=== PATIENT | male | born 1950 | race Two or more races ===

== ENCOUNTER 2017-04-27 17:26 | Inpatient (IN) | payer MEDICARE, MEDICAID ==
[~2017-04-27] VITALS: Ht 172.7 cm; Wt 76.2 kg
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
--- NOTE | 2017-04-27 18:00 | NUR ---
SURVEY TECHNOLOGIST AT BEDSIDE FOR BLOOD DRAW.
[2017-04-27 18:09] LABS: BASOPHILS % (AUTO) 0.7 % (0.0-2.0); EOSINOPHILS # (AUTO) 0.1 /CMM (0.0-0.7); EOSINOPHILS % (AUTO) 2.4 % (0.0-6.0); HEMATOCRIT 35 % (39-51); HEMOGLOBIN 11.6 g/dL (13.5-17.5); LYMPHOCYTES # (AUTO) 0.8 /CMM (0.8-4.8); LYMPHOCYTES % (AUTO) 15.5 % (20.0-44.0); MEAN CORPUSCULAR HEMOGLOBIN 26 PG (26.0-33.0); MEAN CORPUSCULAR HGB CONC 33 g/dl (31.0-36.0); MEAN CORPUSCULAR VOLUME 77 fL (80-96); MONOCYTES # (AUTO) 0.5 /CMM (0.1-1.30); MONOCYTES % (AUTO) 8.9 % (2.0-12.0); NEUTROPHILS # (AUTO) 3.7 /CMM (1.8-8.9); NEUTROPHILS % (AUTO) 72.5 % (43.0-81.0); PLATELET COUNT (AUTO) 177 /CMM (150-450); RDW COEFFICIENT OF VARIATION 15.8 (11.5-15.0); RED BLOOD CELL COUNT(AUTO) 4.51 MIL/uL (4.5-6.0); WHITE BLOOD COUNT (AUTO) 5.1 K/uL (4.3-11.0)
[2017-04-27 18:17] LABS: CALCIUM, SERUM 8.1 mg/dL (8.5-10.1); CARBON DIOXIDE 21 mmol/L (21-32); CHLORIDE 109 mmol/L (98-107); CREATININE 1.2 mg/dL (0.6-1.3); GLUCOSE 101 mg/dL (74-106); POTASSIUM 3.8 mmol/L (3.5-5.1); SODIUM SERUM 138 mmol/L (136-145); UREA NITROGEN, BLOOD 12 mg/dL (7-18)
[2017-04-27 18:23] LABS: ACETAMINOPHEN 2 ug/ml (10-30); ALANINE AMINOTRANSFERASE 17 U/L (12-78); ALBUMIN 3.5 g/dL (3.4-5.0); ALCOHOL, BLOOD < 3 mg/dL (0-0); ALKALINE PHOSPHATASE 121 U/L (46-116); ASPARTATE AMINOTRANSFERASE 18 U/L (15-37); BILIRUBIN,DIRECT 0.1 mg/dL (0.0-0.2); BILIRUBIN,TOTAL 0.3 mg/dL (0.2-1.0); TOTAL PROTEIN, SERUM 6.1 g/dL (6.4-8.2)
[2017-04-27 18:24] LABS: SALICYLATE 1.2 mg/dL (2.8-20.0)
[2017-04-27 18:49] LABS: APPEARANCE,URINE Clear (CLEAR); BILIRUBIN,URINE Negative (NEGATIVE); BLOOD, URINE Negative Ery/uL (NEGATIVE); COLOR,URINE Yellow (YELLOW); KETONES,URINE Negative (NEGATIVE); LEUKOCYTE ESTERASE ,URINE Negative (NEGATIVE); NITRITE, URINE Negative (NEGATIVE); PH,URINE 5.5 (5.0-8.0); PROTEIN,URINE Trace mg/dl (NEGATIVE); UGLUCOSE Negative (NEGATIVE); UROBILINOGEN,URINE 0.2 EU/dL (0.2)
[2017-04-27 18:55] LABS: BACTERIA,URINE Rare /HPF (None Seen); RBC,URINE 0-2 /HPF (0-2); SQUAMOUS EPITHELIAL CELL,UR Few /HPF (None Seen); WBC,URINE 0-2 /HPF (0-3)
[2017-04-27] MEDS ORDERED: HYDR-3895 PO (19:17)
[2017-04-27] MEDS ORDERED: METH500T PO (19:17)
[2017-04-27] MEDS ORDERED: PRIM50TA PO ×2 (19:17)
[2017-04-27] MEDS ORDERED: CALC-108 PO (19:17)
[2017-04-27] MEDS ORDERED: OMEP20CA10 PO (19:17)
[2017-04-27] MEDS ORDERED: CLON0.5T4 PO ×2 (19:17)
[2017-04-27] MEDS ORDERED: SIMV20TA6 PO (19:17)
[2017-04-27] MEDS ORDERED: CITA10TA9 PO (19:17)
[2017-04-27] MEDS ORDERED: FLUT12AE3 IH (19:17)
[2017-04-27] MEDS ORDERED: SUCR1TAB PO (19:17)
[2017-04-27] MEDS ORDERED: CARB15DR47 EACH EAR (19:17)
[2017-04-27] MEDS ORDERED: DOCU250C75 PO (19:17)
[2017-04-27] MEDS ORDERED: ALEN70TA45 PO (19:17)
[2017-04-27] MEDS ORDERED: ALBU8.5H2 INH (19:30)
[2017-04-27] MEDS ORDERED: BUDE180A IH (19:30)
[2017-04-27] MEDS ORDERED: BUDE90AE (19:38)
--- NOTE | 2017-04-27 20:06 | NUR ---
REPORT GIVEN TO ROSA. PT AWAITING TRANSFER TO FLOOR.
[2017-04-27 20:30] VITALS: BP 105/66
[2017-04-27] MEDS ORDERED: MAGNESIUM HYDROXIDE 30 ML UDC PO PRN (21:00)
[2017-04-27] MEDS ORDERED: MAG HYDROX/AL HYDROX/SIMETH 30 ML UDC PO PRN (21:00)
[2017-04-27] MEDS ORDERED: ACETAMINOPHEN 325 MG TABLET PO PRN (21:00)
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
[2017-04-27] MEDS ORDERED: CARBAMIDE PEROXIDE OTIC 15 ML BOTTLE EACH EAR PRN (22:30)
[2017-04-27] MEDS ORDERED: DOCUSATE SODIUM 250 MG CAPSULE PO PRN (22:30)
--- NOTE | 2017-04-28 06:30 | NUR ---
RN GPS NOTES PT. , DENIES SI HI AT THIS TIME NO ACUTE DISTRESS NOTED, ATTENDED ALL NEEDS ANTICIPATED , PT .ENCOURAGED FOR SKIN / BODY ASSESSMENT ,EXPLAINED RISKS AND BENEFITS STILL REFUSED SKIN BODY ASSESSMENT, ENDORSE TO NEXT SHIFT FOR CONTINUITY OF CARE .
--- NOTE | 2017-04-28 07:16 | NUR ---
GPS RN NOTES: AT BED SITE 1:1 SITTER FOR PT, SAFETY WILL CONTINUE TO MONITOR .
[2017-04-28 08:00] VITALS: BP 105/61
[2017-04-28] MEDS ORDERED: hydrOXYzine PAMOATE 25 MG CAPSULE PO SCH (09:00)
[2017-04-28] MEDS ORDERED: clonazePAM 0.5 MG TABLET PO SCH ×2 (09:00→18:00)
[2017-04-28] MEDS: SUCRALFATE 1 G TABLET PO SCH (09:00)
[2017-04-28] MEDS ORDERED: FLUTICASONE/SALMETEROL DISKUS IH SCH (09:00)
[2017-04-28] MEDS: CALCIUM CARB 250MG /VITAMIN D 1 UDTAB PO SCH (09:32)
[2017-04-28] MEDS: PANTOPRAZOLE 40 MG TABLET.DR PO SCH (09:32)
[2017-04-28] MEDS: BUDESONIDE RESPULE INH 0.25 MG/2 ML AMPUL.NEB NEB SCH ×2 (10:01→19:06)
[2017-04-28] MEDS: FLUTICASONE/VILANTEROL 1 EACH BLST.W.DEV IH SCH (10:05)
[2017-04-28 14:45] LABS: IRON, SERUM 35 ug/dl (50-175); TOTAL IRON BINDING CAPACITY 386 ug/dl (250-450)
--- NOTE | 2017-04-28 15:19 | NUR ---
Initial discharge plan: Pt. is a resident at [address] [id number] and wants to return. SHYANN will follow up ih son, Roland [phone] and SHAD Reinoso social security benefits interviewer [phone] to discuss discharge plan. SHYANN will also follow up with MD and will help form a safe and proper discharge.
--- NOTE | 2017-04-28 15:40 | NUR ---
GPS RN: CALLED DR. YORK'S OFFICE AND LEFT A MESSAGE WITH SAND CONDITIONER MACHINE MARILEE REGARDING NEUROLOGY CONSULT ORDERED BY DR. VALLE.
[2017-04-28 16:00] VITALS: BP 101/68
[2017-04-28] MEDS: ALBUTEROL FS 2.5 MG/3 ML VIAL.NEB NEB PRN (16:45)
[2017-04-28] MEDS: CITALOPRAM HYDROBROMIDE 10 MG TABLET PO SCH (17:17)
--- NOTE | 2017-04-28 19:06 | NUR ---
1930 Q12 BUDESONIDE NOT GIVEN AT THIS TIME. RT DAY SHIFT GAVE TX AT 16:45. WILL CONT TO MONITOR PATIENT.
[2017-04-28 19:59] VITALS: BP 123/77
[2017-04-28 20:00] VITALS: BP 123/77
[2017-04-28] MEDS: SIMVASTATIN 20 MG TABLET PO SCH (21:14)
[2017-04-28] MEDS: PRIMIDONE 50 MG TABLET PO SCH (21:14)
[2017-04-29] MEDS: TEMAZEPAM 7.5 MG CAPSULE PO PRN ×2 (01:07→22:41)
[2017-04-29] MEDS: BUDESONIDE RESPULE INH 0.25 MG/2 ML AMPUL.NEB NEB SCH ×2 (07:24→19:04)
[2017-04-29 08:22] VITALS: BP 118/76
[2017-04-29] MEDS: CALCIUM CARB 250MG /VITAMIN D 1 UDTAB PO SCH (08:40)
[2017-04-29] MEDS: SUCRALFATE 1 G TABLET PO SCH (08:40)
[2017-04-29] MEDS: CITALOPRAM HYDROBROMIDE 10 MG TABLET PO SCH ×2 (08:40→17:09)
[2017-04-29] MEDS: PANTOPRAZOLE 40 MG TABLET.DR PO SCH (08:41)
[2017-04-29] MEDS: FLUTICASONE/VILANTEROL 1 EACH BLST.W.DEV IH SCH (08:42)
--- NOTE | 2017-04-29 14:32 | NUR ---
SHYANN spoke with Rosibel from admission at [address] [id number] and she stated that [place] social welfare research worker, Dominick [phone] is working on placing him somewhere else. SHYANN called Dominick but she was not available; hence, a voicemail was left to be called back. SHYANN will follow up
[2017-04-29] MEDS ORDERED: GADOVERSETAMIDE 5 MMOL/10 ML VIAL IJ ONE (14:51)
[2017-04-29] MEDS ORDERED: GADOVERSETAMIDE 2.5 MMOL/5 ML VIAL IJ ONE (14:51)
--- NOTE | 2017-04-29 15:35 | NUR ---
SHYANN received a voicemail from Daisha from [facility] [phone] stating to call back when pt is being discharge to coordinate care. SHYANN will follow up
[2017-04-29 15:54] VITALS: BP 122/68
[2017-04-29] MEDS: SIMVASTATIN 20 MG TABLET PO SCH (22:40)
[2017-04-29] MEDS: PRIMIDONE 50 MG TABLET PO SCH (22:40)
[2017-04-29] MEDS: QUETIAPINE FUMARATE 25 MG TABLET PO SCH (22:40)
[2017-04-30] MEDS: BUDESONIDE RESPULE INH 0.25 MG/2 ML AMPUL.NEB NEB SCH ×2 (07:11→20:47)
[2017-04-30] MEDS ORDERED: ALENDRONATE 70 MG TABLET PO SCH (07:30)
[2017-04-30 08:00] VITALS: BP 107/63
[2017-04-30] MEDS: SUCRALFATE 1 G TABLET PO SCH (08:36)
[2017-04-30] MEDS: QUETIAPINE FUMARATE 25 MG TABLET PO SCH ×2 (08:36→21:08)
[2017-04-30] MEDS: CALCIUM CARB 250MG /VITAMIN D 1 UDTAB PO SCH (08:36)
[2017-04-30] MEDS: PANTOPRAZOLE 40 MG TABLET.DR PO SCH (08:36)
[2017-04-30] MEDS: CITALOPRAM HYDROBROMIDE 10 MG TABLET PO SCH ×2 (08:36→16:58)
[2017-04-30] MEDS: CYANOCOBALAMIN 1,000 MCG/ML VIAL IM SCH (08:36)
[2017-04-30] MEDS: FLUTICASONE/VILANTEROL 1 EACH BLST.W.DEV IH SCH (08:43)
[2017-04-30] MEDS: METHOCARBAMOL (500MG) 500 MG TABLET PO PRN (13:38)
[2017-04-30 15:53] VITALS: BP 104/71
[2017-04-30 20:00] VITALS: BP 114/70
[2017-04-30] MEDS: PRIMIDONE 50 MG TABLET PO SCH (21:08)
[2017-04-30] MEDS: SIMVASTATIN 20 MG TABLET PO SCH (21:08)
--- NOTE | 2017-04-30 21:09 | NUR ---
GPS RN NOTES : PT. C/O CONSTIPATION , MILK OF MAGNESIA GIVEN 30 ML PO PRN GIVEN PRE PT. REQUEST , WILL CONTINUE TO MONITOR .
--- NOTE | 2017-05-01 06:46 | NUR ---
RN GPS NOTE PT .REMAINED IN STABLE CONDITION RESTING IN HIS BED ,NO ACUTE DISTRESS NOTED ATTENDED ALL NEEDS AND ANTICIPATED , DENIES SI/ HI AT THIS TIME, NO BM NOTED AT DURING SHIFT ,DENIES ANY PAIN DISCOMFORT AT THIS TIME ,WILL ENDORSE TO NEXT SHIFT FOR CONTINUITY OF CARE
[2017-05-01] MEDS: PANTOPRAZOLE 40 MG TABLET.DR PO SCH (07:50)
[2017-05-01] MEDS: METHOCARBAMOL (500MG) 500 MG TABLET PO PRN ×2 (07:52→17:54)
[2017-05-01 08:00] VITALS: BP 138/73
[2017-05-01] MEDS: SUCRALFATE 1 G TABLET PO SCH (08:05)
[2017-05-01] MEDS: BUDESONIDE RESPULE INH 0.25 MG/2 ML AMPUL.NEB NEB SCH ×2 (08:05→20:03)
[2017-05-01] MEDS: CALCIUM CARB 250MG /VITAMIN D 1 UDTAB PO SCH (08:05)
[2017-05-01] MEDS: CITALOPRAM HYDROBROMIDE 10 MG TABLET PO SCH ×2 (08:05→16:11)
[2017-05-01] MEDS: CYANOCOBALAMIN 1,000 MCG/ML VIAL IM SCH (08:06)
[2017-05-01] MEDS: QUETIAPINE FUMARATE 25 MG TABLET PO SCH ×2 (08:06→21:36)
[2017-05-01] MEDS: FLUTICASONE/VILANTEROL 1 EACH BLST.W.DEV IH SCH (08:18)
[2017-05-01] MEDS ORDERED: POLYVINYL ALCOHOL 15 ML BOTTLE EACHEYE PRN (10:00)
[2017-05-01 16:00] VITALS: BP 98/65
[2017-05-01] MEDS: BENZTROPINE MESYLATE (1 MG) 1 MG TABLET PO SCH (17:11)
[2017-05-01 19:59] VITALS: BP 126/75
[2017-05-01] MEDS: SIMVASTATIN 20 MG TABLET PO SCH (21:36)
[2017-05-01] MEDS: PRIMIDONE 50 MG TABLET PO SCH (21:37)
[2017-05-02] MEDS: clonazePAM 0.5 MG TABLET PO PRN ×2 (05:22→10:14)
--- NOTE | 2017-05-02 05:25 | NUR ---
GPS RN NOTES PT. C/O ANXIETY , CLONAZEPAM 0.5 MG PO PRN GIVEN PER PT.REQUEST, WILL CONTINUE TO MONITOR .
[2017-05-02] MEDS: BUDESONIDE RESPULE INH 0.25 MG/2 ML AMPUL.NEB NEB SCH ×2 (07:28→19:14)
[2017-05-02 08:00] VITALS: BP 108/62
[2017-05-02] MEDS: SUCRALFATE 1 G TABLET PO SCH (08:26)
[2017-05-02] MEDS: CALCIUM CARB 250MG /VITAMIN D 1 UDTAB PO SCH (08:26)
[2017-05-02] MEDS: CYANOCOBALAMIN 1,000 MCG/ML VIAL IM SCH (08:26)
[2017-05-02] MEDS: CITALOPRAM HYDROBROMIDE 10 MG TABLET PO SCH ×2 (08:26→16:34)
[2017-05-02] MEDS: QUETIAPINE FUMARATE 25 MG TABLET PO SCH ×2 (08:26→21:22)
[2017-05-02] MEDS: BENZTROPINE MESYLATE (1 MG) 1 MG TABLET PO SCH ×2 (08:26→16:34)
[2017-05-02] MEDS: PANTOPRAZOLE 40 MG TABLET.DR PO SCH (08:26)
[2017-05-02] MEDS: FLUTICASONE/VILANTEROL 1 EACH BLST.W.DEV IH SCH (08:27)
[2017-05-02 16:00] VITALS: BP 108/56
[2017-05-02 16:05] VITALS: BP 108/56
[2017-05-02 20:09] VITALS: BP 116/74
[2017-05-02] MEDS: PRIMIDONE 50 MG TABLET PO SCH (21:23)
[2017-05-02] MEDS: SIMVASTATIN 20 MG TABLET PO SCH (21:24)
[2017-05-03 02:14] LABS: VITAMIN B1 THIAMINE,WB 105.9 nmol/L (66.5-200.0)
[2017-05-03] MEDS: BUDESONIDE RESPULE INH 0.25 MG/2 ML AMPUL.NEB NEB SCH ×2 (07:23→19:30)
[2017-05-03 08:11] VITALS: BP 101/59
[2017-05-03] MEDS: CALCIUM CARB 250MG /VITAMIN D 1 UDTAB PO SCH (08:28)
[2017-05-03] MEDS: SUCRALFATE 1 G TABLET PO SCH (08:28)
[2017-05-03] MEDS: clonazePAM 0.5 MG TABLET PO PRN ×3 (08:28→20:48)
--- NOTE | 2017-05-03 08:28 | NUR ---
GPS/RN PATIENT AGITATED, ANXIOUS, YELLING, ADMINISTERED KLONOPIN 0.5 MG ORDERED, WILL CONTINUE TO MONITOR
[2017-05-03] MEDS: CITALOPRAM HYDROBROMIDE 10 MG TABLET PO SCH ×2 (08:29→17:22)
[2017-05-03] MEDS: CYANOCOBALAMIN 1,000 MCG/ML VIAL IM SCH (08:29)
[2017-05-03] MEDS: QUETIAPINE FUMARATE 25 MG TABLET PO SCH ×3 (08:29→20:47)
[2017-05-03] MEDS: BENZTROPINE MESYLATE (1 MG) 1 MG TABLET PO SCH ×2 (08:29→17:22)
[2017-05-03] MEDS: PANTOPRAZOLE 40 MG TABLET.DR PO SCH (08:29)
[2017-05-03] MEDS: FLUTICASONE/VILANTEROL 1 EACH BLST.W.DEV IH SCH (09:16)
--- NOTE | 2017-05-03 10:20 | NUR ---
SHYANN left a voicemail again for [place] social group worker, Dominick [phone] asking to call back Will follow up
--- NOTE | 2017-05-03 10:21 | NUR ---
SHYANN left a voicemail for Daisha from [facility] [phone] regarding pt's discharge. will follow up
--- NOTE | 2017-05-03 13:13 | NUR ---
GPS/RN PATIENT AGITATED, ANXIOUS, YELLING, ADMINISTERED KLONOPIN 0.5 MG ORDERED, WILL CONTINUE TO MONITOR
--- NOTE | 2017-05-03 15:07 | NUR ---
SHYANN left a voicemail for pt's son, Roland Lord, regarding pt's placement, as pt's [place] social contact worker, Kina [phone] has not been calling back. SHYANN asked if pt. can be discharged to a short term rehab until [place] finds a more appropriate facility.
--- NOTE | 2017-05-03 15:20 | NUR ---
SHYANN faxed a referral to to [facility] [address] [place] [address] will follow up Addendum: 05/06/17 at 0829 by SUNNY DOBBINS SW Patient was accepted to [facility] ([address] [place] [address] ). Informed the patient, who agrees to be discharged there. [place] nurse Kina ([phone]) and Daisha from [facility] was notified of the patient's discharge to [facility] via voicemail. Son Roland Lord ([phone]) also notified via voicemail.
--- NOTE | 2017-05-03 15:20 | NUR ---
SHYANN spoke with [place] nurse, Kina [phone] who confirmed that pt cannot return to the facility as he has not been paying. Pt. needs a rehab and Kina agreed that pt. needs to be placed and asked SHYANN to help with that.
[2017-05-03 16:00] VITALS: BP 114/61
[2017-05-03 20:28] VITALS: BP 99/58
[2017-05-03] MEDS: SIMVASTATIN 20 MG TABLET PO SCH (21:57)
[2017-05-03] MEDS: PRIMIDONE 50 MG TABLET PO SCH (22:00)
--- NOTE | 2017-05-03 22:21 | NUR ---
GPS RN NOTE: PRIMIDONE 50 MG NOT GIVEN, MEDICATION NOT AVAILABLE, SOCIAL MEDIA PROJECT MANAGER MADE AWAKE, AWARE, PATIENT STABLE, NO SOB, NO ACUTE DISTRESS, BREATHING EVEN AND UNLABORED, NO S/S OF PAIN AND DISCOMFORT, WILL CONTINUE TO MONITOR
[2017-05-04] MEDS: ALBUTEROL FS 2.5 MG/3 ML VIAL.NEB NEB PRN (00:21)
[2017-05-04] MEDS: TEMAZEPAM 7.5 MG CAPSULE PO PRN ×2 (00:22→21:21)
[2017-05-04 06:48] LABS: BASOPHILS % (AUTO) 0.9 % (0.0-2.0); EOSINOPHILS # (AUTO) 0.1 /CMM (0.0-0.7); EOSINOPHILS % (AUTO) 2.8 % (0.0-6.0); HEMATOCRIT 34 % (39-51); HEMOGLOBIN 11.4 g/dL (13.5-17.5); LYMPHOCYTES # (AUTO) 1.1 /CMM (0.8-4.8); LYMPHOCYTES % (AUTO) 22.6 % (20.0-44.0); MEAN CORPUSCULAR HEMOGLOBIN 26 PG (26.0-33.0); MEAN CORPUSCULAR HGB CONC 33 g/dl (31.0-36.0); MEAN CORPUSCULAR VOLUME 78 fL (80-96); MONOCYTES # (AUTO) 0.5 /CMM (0.1-1.30); MONOCYTES % (AUTO) 11.2 % (2.0-12.0); NEUTROPHILS % (AUTO) 62.5 % (43.0-81.0); PLATELET COUNT (AUTO) 171 /CMM (150-450); RDW COEFFICIENT OF VARIATION 16.4 (11.5-15.0); RED BLOOD CELL COUNT(AUTO) 4.41 MIL/uL (4.5-6.0); WHITE BLOOD COUNT (AUTO) 4.8 K/uL (4.3-11.0)
[2017-05-04 07:17] LABS: CALCIUM, SERUM 8.7 mg/dL (8.5-10.1); CREATININE 1.1 mg/dL (0.6-1.3); PHOSPHORUS 4.5 mg/dL (2.5-4.9); POTASSIUM 3.8 mmol/L (3.5-5.1)
[2017-05-04] MEDS: PANTOPRAZOLE 40 MG TABLET.DR PO SCH (07:30)
[2017-05-04] MEDS: BUDESONIDE RESPULE INH 0.25 MG/2 ML AMPUL.NEB NEB SCH ×2 (07:39→20:19)
[2017-05-04 08:00] VITALS: BP 98/69
[2017-05-04] MEDS: BENZTROPINE MESYLATE (1 MG) 1 MG TABLET PO SCH ×2 (09:16→17:00)
[2017-05-04] MEDS: CYANOCOBALAMIN 1,000 MCG/ML VIAL IM SCH (09:16)
[2017-05-04] MEDS: CITALOPRAM HYDROBROMIDE 10 MG TABLET PO SCH ×2 (09:16→17:00)
[2017-05-04] MEDS: CALCIUM CARB 250MG /VITAMIN D 1 UDTAB PO SCH (09:16)
[2017-05-04] MEDS: SUCRALFATE 1 G TABLET PO SCH (09:16)
[2017-05-04] MEDS: clonazePAM 0.5 MG TABLET PO PRN ×2 (09:17→09:30)
[2017-05-04] MEDS: QUETIAPINE FUMARATE 25 MG TABLET PO SCH ×3 (09:20→21:14)
[2017-05-04] MEDS: FLUTICASONE/VILANTEROL 1 EACH BLST.W.DEV IH SCH (09:20)
[2017-05-04 16:00] VITALS: BP 113/68
[2017-05-04 19:54] VITALS: BP 115/72
[2017-05-04] MEDS: PRIMIDONE 50 MG TABLET PO SCH (21:14)
[2017-05-04] MEDS: SIMVASTATIN 20 MG TABLET PO SCH (21:19)
[2017-05-05] MEDS: BUDESONIDE RESPULE INH 0.25 MG/2 ML AMPUL.NEB NEB SCH (07:25)
[2017-05-05 08:00] VITALS: BP 103/77
[2017-05-05] MEDS: clonazePAM 0.5 MG TABLET PO PRN (08:53)
[2017-05-05] MEDS: CITALOPRAM HYDROBROMIDE 10 MG TABLET PO SCH ×2 (08:54→17:46)
[2017-05-05] MEDS: QUETIAPINE FUMARATE 25 MG TABLET PO SCH ×3 (08:54→21:26)
[2017-05-05] MEDS: CALCIUM CARB 250MG /VITAMIN D 1 UDTAB PO SCH (08:54)
[2017-05-05] MEDS: BENZTROPINE MESYLATE (1 MG) 1 MG TABLET PO SCH ×2 (08:54→18:02)
[2017-05-05] MEDS: PANTOPRAZOLE 40 MG TABLET.DR PO SCH (08:54)
[2017-05-05] MEDS: CYANOCOBALAMIN 1,000 MCG/ML VIAL IM SCH (08:55)
--- NOTE | 2017-05-05 08:55 | NUR ---
GPS/RN PATIENT AGITATED, ANXIOUS, REQUESTING KLONOPIN, ADMINISTERED KLONOPIN 0.5 MG ORDERED, WILL CONTINUE TO MONITOR
[2017-05-05] MEDS: FLUTICASONE/VILANTEROL 1 EACH BLST.W.DEV IH SCH (08:56)
[2017-05-05] MEDS: SUCRALFATE 1 G TABLET PO SCH (09:26)
[2017-05-05 16:00] VITALS: BP 127/80
[2017-05-05] MEDS: FERROUS SULFATE (325 MG) 325 MG/TAB TABLET PO SCH (18:17)
[2017-05-05] MEDS: BUDESONIDE RESPULE INH 0.5 MG/2 ML AMPUL.NEB NEB SCH (19:29)
--- NOTE | 2017-05-05 19:30 | NUR ---
GPS RN NOTE, RECEIVED PATIENT AWAKE AND IN BED, NO S/S OR COMPLAINTS OF PAIN AT THIS TIME. PATIENT IS DISPLAYING NO S/S OF APPARENT DISTRESS AT THIS TIME. PATIENT BREATHING IS UNLABORED WITH EQUAL RISE AND FALL OF THE CHEST. PATIENT IS ALERT AND ORIENTED X 3 ON ROOM AIR WITH A SPO2 95%. PATIENT COMPLAINT WITH MEDICATION, ANXIOUS, COOPERATIVE, EASILY FRUSTERATED WITH HIS CONDITION, CALM, AND NEEDS REORIENTATION. PATIENT DENIES SUICIDE AND HOMICIDAL IDEATIONS AT THIS TIME. PATIENT ASSISTED WITH TURNING AND REPOSITIONING Q2HR AND PRN FOR COMFORT AND CIRCULATION. PATIENT HAS NO NEEDS AT THIS TIME. PATIENT EDUCATED ON THE USE OF THE CALL ANAND. PATIENT BED SIDE RAILS UP X2 FOR SAFETY, BED IS LOCKED AND LOW WILL CONTINUE TO MONITOR AND MAINTAIN SAFETY.
[2017-05-05 20:00] VITALS: BP 109/74
[2017-05-05] MEDS: ALBUTEROL FS 2.5 MG/3 ML VIAL.NEB NEB PRN (21:11)
[2017-05-05] MEDS: SIMVASTATIN 20 MG TABLET PO SCH (21:26)
[2017-05-05] MEDS: PRIMIDONE 50 MG TABLET PO SCH (21:27)
[2017-05-05] MEDS: TEMAZEPAM 7.5 MG CAPSULE PO PRN (21:35)
--- NOTE | 2017-05-05 21:35 | NUR ---
GPS RN NOTE, PATIENT HAS A COMPLAINT OF NOT BEING ABLE TO SLEEP AND WOULD LIKE A SLEEPING AID AT THIS TIME. PATIENT VITAL SIGNS ARE STABLE. GAVE RESTORIL 15MG PO HS ORDERED. WILL REASSESS FOR INSOMNIA AND I WILL CONTINUE TO MONITOR THIS PATIENT.
[2017-05-06] MEDS: BUDESONIDE RESPULE INH 0.5 MG/2 ML AMPUL.NEB NEB SCH (07:41)
[2017-05-06 08:00] VITALS: BP 100/62
[2017-05-06] MEDS: CALCIUM CARB 250MG /VITAMIN D 1 UDTAB PO SCH (08:07)
[2017-05-06] MEDS: CYANOCOBALAMIN 1,000 MCG/ML VIAL IM SCH (08:07)
[2017-05-06] MEDS: QUETIAPINE FUMARATE 25 MG TABLET PO SCH (08:07)
[2017-05-06] MEDS: SUCRALFATE 1 G TABLET PO SCH (08:07)
[2017-05-06] MEDS: PANTOPRAZOLE 40 MG TABLET.DR PO SCH (08:07)
[2017-05-06] MEDS: CITALOPRAM HYDROBROMIDE 10 MG TABLET PO SCH (08:07)
[2017-05-06] MEDS: BENZTROPINE MESYLATE (1 MG) 1 MG TABLET PO SCH (08:07)
[2017-05-06] MEDS: FLUTICASONE/VILANTEROL 1 EACH BLST.W.DEV IH SCH (08:25)
[2017-05-06] MEDS: FERROUS SULFATE (325 MG) 325 MG/TAB TABLET PO SCH (08:26)
--- NOTE | 2017-05-06 09:00 | NUR ---
RN-CO: Patient is calm and cooperative to care. Denied suicidal and homicidal ideation and denied auditory and visual hallucination.Tool all his medications. Patient is aware that he is for discharge.
--- NOTE | 2017-05-06 09:51 | NUR ---
[facility] scheduled for 3pm. Charge nurse notified.
--- NOTE | 2017-05-06 09:52 | NUR ---
Received call from PR nurse, Kina [phone] who acknowledged information as to where patient was going to be discharged to and stated she will follow up in coordinating the transfer of his belongings. Patient denying suicidal/homicidal ideations and has been med complaint. Paperwork faxed to [facility] ([address] [place] [address] ).
--- NOTE | 2017-05-06 10:09 | NUR ---
RN-CO: Paged Dr GREY TO OBTAIN ORDER. PATIENT DENIED PAIN AND DISCOMFORTS, NO ACUTE DISTRESS NOTED.
--- NOTE | 2017-05-06 11:00 | NUR ---
RN-CO: DR DANIEL HOFFMAN MEDICALLY CLEARED PATIENT FOR DISCHARGE.
--- NOTE | 2017-05-06 12:15 | NUR ---
GPS RN NOTE: RECEIVED PATIENT SITTING ON BED. PATIENT IS ALERT AND ORIENTED. SPASTICITY NOTED. DENIES PAIN. PATIENT DENIES SI/HI. ALL NEEDS ANTICIPATED AND MET. WILL CONTINUE TO MONITOR FOR SAFETY AND BEHAVIOR.
--- NOTE | 2017-05-06 12:40 | NUR ---
RN-CO:Yesika Currie RN gave a report top "Dustin MARIO in the facility.
[2017-05-06 16:00] VITALS: BP 115/63
--- NOTE | 2017-05-06 16:10 | NUR ---
RN-CO: Picked up by [facility] and RN gave report. All belongings and valuables were given back to the patient.
--- NOTE | 2017-05-06 16:33 | NUR ---
Discharge Note:Patient was discharged to [facility] ([address] [place] [address] ) via [facility]. Patient will follow up with his psychiatrist Dr. Hardin and PCP Dr. Bolivar at [facility] ([address] [place] [address] ) on Tuesday05/09/2017 at 1pm to discuss use of barbiturates. Patient denying suicidal homicidal ideations at the time of discharge. SonRoland [phone] and [place], [place] licensed master social worker [phone] are notified. Facilitated information to IDT team who are in agreement with the patient's discharge. The multidisciplinary exitcare form was done, printed, signed, and given to the patient.
== END 2017-05-06 16:18 | DRG 885 ==
LOC: ER 17:39 → GPS 19:42
PROVIDERS: ADMIT Psychiatry & Neurology Psychiatry; ATTEND Nurse Practitioner Acute Care
DX: F32.3 Major depressive disorder, single episode, severe with psychotic features (principal); F29 Unspecified psychosis not due to a substance or known physiological condition; D50.9 Iron deficiency anemia, unspecified; E78.5 Hyperlipidemia, unspecified; F41.9 Anxiety disorder, unspecified; G89.29 Other chronic pain; I10 Essential (primary) hypertension; J45.909 Unspecified asthma, uncomplicated; K21.9 Gastro-esophageal reflux disease without esophagitis; M81.0 Age-related osteoporosis without current pathological fracture; Z85.46 Personal history of malignant neoplasm of prostate; Z87.11 Personal history of peptic ulcer disease; R27.0 Ataxia, unspecified; F43.10 Post-traumatic stress disorder, unspecified; G93.89 Other specified disorders of brain; F03.90 Unspecified dementia, unspecified severity, without behavioral disturbance, psychotic disturbance, mood disturbance, and anxiety
CPT/HCPCS: 36415; 70450-TC; 70553-TC; 80048-TC; 80061-TC; 80076-TC; 80305; 81000-TC; 82565-TC; 83540-TC; 83735-TC; 84100-TC; 84425; 85025-TC; 86592; 87081-TC; A4606; A9579; G0480; J3420; Z7610

== ENCOUNTER 2023-01-12 16:33 | Inpatient (IN) | payer MEDICARE, OTHER ==
[~2023-01-12] VITALS: Ht 170.2 cm; Wt 72.6 kg
[~2023-01-12 16:33] MED LIST: ALBU8.5H8 INH; ALEN70TA80 PO; BUDE90AE; CALC-261 PO; CARB15DR49 EACH EAR; CITA10TA9 PO; CLON0.5T4 PO; DOCU250C14 PO; FLUT12AE3 IH; HYDR-3895 PO; METH500T PO; OMEP20CA15 PO; PRIM50TA PO; SIMV-46 PO; SUCR1TAB PO
[2023-01-12 18:06] LABS: BASOPHILS % (AUTO) 0.8 % (0.0-2.0); EOSINOPHILS % (AUTO) 4.8 % (0.0-6.0); HEMATOCRIT 43 % (39-51); LYMPHOCYTES # (AUTO) 0.9 K/uL (0.8-4.8); LYMPHOCYTES % (AUTO) 19.5 % (20.0-44.0); MEAN CORPUSCULAR HGB CONC 33 g/dl (31.0-36.0); MEAN CORPUSCULAR VOLUME 91 fL (80-96); MONOCYTES # (AUTO) 0.5 K/uL (0.1-1.30); MONOCYTES % (AUTO) 11.2 % (2.0-12.0); NEUTROPHILS # (AUTO) 2.9 K/uL (1.8-8.9); NEUTROPHILS % (AUTO) 63.7 % (43.0-81.0); PLATELET COUNT (AUTO) 162 K/uL (150-450); WHITE BLOOD COUNT (AUTO) 4.5 K/uL (4.3-11.0)
[2023-01-12 18:09] LABS: BILIRUBIN,URINE NEGATIVE (NEGATIVE); COLOR,URINE YELLOW (YELLOW); LEUKOCYTE ESTERASE ,URINE NEGATIVE (NEGATIVE); NITRITE, URINE NEGATIVE (NEGATIVE); PH,URINE 5.5 (5.0-8.0); PROTEIN,URINE NEGATIVE (NEGATIVE); UGLUCOSE NEGATIVE (NEGATIVE); UROBILINOGEN,URINE 0.2 EU/dL (0.2)
[2023-01-12 18:29] LABS: CALCIUM, SERUM 8.9 mg/dL (8.5-10.1); CARBON DIOXIDE 24 mmol/L (21-32); CHLORIDE 107 mmol/L (98-107); CREATININE 0.9 mg/dL (0.6-1.3); GLUCOSE 94 mg/dL (74-106); POTASSIUM 3.8 mmol/L (3.5-5.1); SODIUM SERUM 139 mmol/L (136-145); UREA NITROGEN, BLOOD 17 mg/dL (7-18)
[2023-01-12 18:36] LABS: ALANINE AMINOTRANSFERASE 24 U/L (12-78); ALBUMIN 3.7 g/dL (3.4-5.0); ALCOHOL, BLOOD < 3 mg/dL (0-0); ALKALINE PHOSPHATASE 122 U/L (46-116); ASPARTATE AMINOTRANSFERASE 21 U/L (15-37); BILIRUBIN,DIRECT 0.1 mg/dL (0.0-0.2); BILIRUBIN,TOTAL 0.3 mg/dL (0.2-1.0); TOTAL PROTEIN, SERUM 6.4 g/dL (6.4-8.2)
[2023-01-12 18:41] LABS: ACETAMINOPHEN 0 ug/ml (10-30)
--- NOTE | 2023-01-12 18:45 | NUR ---
MOVE SHEET SUBMITTED.
--- NOTE | 2023-01-12 18:53 | NUR ---
covid and urine sent to lab blood drawn by phleb
--- NOTE | 2023-01-12 20:44 | NUR ---
REPORT GIVEN TO GPS RN FOR CONTINUATION OF CARE.
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
--- NOTE | 2023-01-12 21:30 | NUR ---
RN NOTES BILLING CLERK PAVEL WAS NOTIFIED FOR MEDICATION RECONCILIATION AWAITING MED RECON.
[2023-01-12] MEDS ORDERED: MAG HYDROX/AL HYDROX/SIMETH 30 ML UDC PO PRN (22:00)
[2023-01-12] MEDS ORDERED: ACETAMINOPHEN 325 MG TABLET PO PRN (22:00)
[2023-01-12] MEDS ORDERED: TEMAZEPAM 7.5 MG CAPSULE PO PRN (22:00)
[2023-01-12] MEDS ORDERED: LORAZEPAM 0.5 MG TABLET PO PRN (22:00)
[2023-01-12] MEDS ORDERED: MAGNESIUM HYDROXIDE 30 ML UDC PO PRN (22:00)
[2023-01-12] MEDS ORDERED: BLOOD SUGAR DIAGNOSTIC 1 EACH STRIP IN ONE (22:00)
--- NOTE | 2023-01-13 06:28 | NUR ---
RN NOTES LEFT VOICE MESSAGE TO GRICELDA LOPEZ REGARDING THE ADMISSION OF THE PATIENT- 2ND ATTEMPT
[2023-01-13 08:00] VITALS: BP 104/63
[2023-01-13 08:02] LABS: CHOLESTEROL 149 mg/dL (<200); HDL CHOLESTEROL 49 mg/dL (40-60); LDL 89 mg/dL (0-99); TRIGLYCERIDES 83 mg/dL (30-150)
[2023-01-13 08:15] LABS: ALANINE AMINOTRANSFERASE 25 U/L (12-78); ALBUMIN 3.6 g/dL (3.4-5.0); ALKALINE PHOSPHATASE 122 U/L (46-116); ASPARTATE AMINOTRANSFERASE 19 U/L (15-37); BILIRUBIN,TOTAL 0.3 mg/dL (0.2-1.0); CALCIUM, SERUM 8.9 mg/dL (8.5-10.1); CARBON DIOXIDE 25 mmol/L (21-32); CHLORIDE 108 mmol/L (98-107); GLUCOSE 100 mg/dL (74-106); SODIUM SERUM 141 mmol/L (136-145); TOTAL PROTEIN, SERUM 6.3 g/dL (6.4-8.2); UREA NITROGEN, BLOOD 15 mg/dL (7-18)
--- NOTE | 2023-01-13 09:59 | NUR ---
SHYANN Initial Discharge Plan: [facility] resides at [facility] at [address] [place] [address]; ([phone]). SHYANN contacted the roll finisher Arsalan ([phone]) who stated that pt is not welcomed back because he has been aggressive and non compliant at the facility. SHYANN will contact pt's son Roland ([phone]) to discuss treatment.discharge plan. SHYANN will work with the MD, family, and treatment team.
--- NOTE | 2023-01-13 10:01 | NUR ---
Treatment Plan: Pt was suspicious and refused to sign the treatment plan.
--- NOTE | 2023-01-13 10:01 | NUR ---
Facility Contact: SW contacted the architectural sales consultant Arsalan ([phone]) who stated that pt is not welcomed back because he has been aggressive and non compliant at the facility. Arsalan architectural sales consultant stated pt would need a SNF. He stated he was residing with them for 2-3 years and reported no family has been involved and the son has never been involved in his care.
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
[2023-01-13] MEDS ORDERED: Medication Not On Formulary EA (Budesonide (Pulmicort Flexhaler) 2 PUFF) PRN (10:30)
[2023-01-13] MEDS: PANTOPRAZOLE 40 MG TABLET.DR PO SCH (11:12)
[2023-01-13] MEDS: DIVALPROEX SODIUM 125 MG CAP.SPRINK PO SCH ×2 (12:04→20:13)
[2023-01-13] MEDS: SERTRALINE HCL 25 MG TABLET PO SCH (12:29)
--- NOTE | 2023-01-13 14:49 | NUR ---
SHYANN Family Contact: SW attempted to contact pt's son Roland ([phone]) and he stated that he has a restraining order against pt. He stated that he is not "really" involved in the care. He shared he would only want to know where pt discharges too.
[2023-01-13] MEDS ORDERED: ALBUTEROL FS 2.5 MG/0.5 ML VIAL.NEB NEB PRN (15:00)
[2023-01-13 16:00] VITALS: BP 105/70
[2023-01-13] MEDS: CALCIUM CARB 600MG /VIT D 1 EACH TABLET PO SCH (17:06)
--- NOTE | 2023-01-13 19:24 | NUR ---
GPS LINE MAINTAINER SECTION NOTE: RCVD IN BED , AWAKE , CALM AT THIS TIME, NOTED TALKING TO HIMSELF, DENIES PAIN OR DISCOMFORT AT THIS TIME. BREATHING EVEN AND UNLABORED, NO S/SX OF RES. DISTRESS OR DISCOMFORT AT THIS TIME. WILL CONT TO MONITOR PT'S SAFETY AND ANTICIPATE NEEDS.
[2023-01-13] MEDS: PRIMIDONE 50 MG TABLET PO SCH (20:14)
--- NOTE | 2023-01-13 20:15 | NUR ---
GPS PUMP AND STILL OPERATOR NOTE: PT WITH EPISODE OF ANXIETY/AGITATION REQUESTING PRN MEDICATION ATIVAN , ANXIETY M/B UNABLE TO RELAX, VERBALIZATION OF ANXIETY, AND INCREASED RR 20-30,DUE MEDICATION AND PRN ATIVAN ORDERED FOR PRN GIVEN. ALSO CALLED RT TRACY , PT IS ALSO REQUESTING PRN BREATHING TX FOR HIS "ASTHMA" PT VERBALIZED HE HAS ASTHMA AND GETS BREATHING TX, NO ACUTE S/SX OF RES DISTRESS NOTED AT THIS TIME, 02 SAT 97% HR 66-70 WILL CONT TO MONITOR.
[2023-01-13 20:17] VITALS: BP 101/62
--- NOTE | 2023-01-13 20:52 | NUR ---
RT pt assessed. pt states he is fine. RR normal. resting in bed, relaxed. no sob, no resp distress.
[2023-01-13] MEDS: SIMVASTATIN 20 MG TABLET PO SCH (21:08)
--- NOTE | 2023-01-13 22:38 | NUR ---
GPS INFO ANALYST NOTE PT ASLEEP, EASY TO AROUSE. NO S/SX OF RESP DISTRESS, BREATHING EVEN AND UNLABORED. COMPLIANT WITH HIS MEDICATIONS, ATIVAN PRN GIVEN @2013- EFFECTIVE, NO EPISODE OF ANXIETY /AGITATION NOTED AT THIS TIME. WILL CONTINUE TO MONITOR Q15 MISN PT'S BEHAVIOR AND SAFETY.
--- NOTE | 2023-01-14 00:23 | NUR ---
GPS MERCHANDISE COORDINATOR NOTE PT SLEEPING IN BED, EASY TO AROUSE, BREATHING EVEN AND UNLABORED. SAFETY MEASURES OBSERVED. WILL CONT TO MONITOR Q 15 MINS PT'S BEHAVIOR AND SAFETY.
--- NOTE | 2023-01-14 03:15 | NUR ---
GPS SPONGE MAKER NOTE PT SLEEPING, EASY TO AROUSE, NO S/SX OF RESP.DISTRESS. CONT TO MONITOR Q15 MINS - BEHAVIOR AND SAFETY.
--- NOTE | 2023-01-14 06:06 | NUR ---
GPS HEEL BUILDER MACHINE NOTE PT STILL SLEEPING AT THIS TIME, EASY TO AROUSE. NO S/SX OF RESP.DISTRESS, PT ABLE TO MAKE HIS NEEDS KNOW, ABLE TO VERBALIZED NEEDS. TOLERATED HIS MEDS DURING SHIFT. SAFETY MEASURES OBSERVED. WILL ENDORSE CONTINUITY OF CARE TO AM ONCOMING NURSE.
[2023-01-14 08:00] VITALS: BP 108/65
[2023-01-14] MEDS: FLUTICASONE/VILANTEROL 1 EACH BLST.W.DEV IH SCH (08:41)
[2023-01-14] MEDS: CARBAMIDE PEROXIDE OTIC 15 ML BOTTLE EACH EAR SCH (08:41)
[2023-01-14] MEDS: DIVALPROEX SODIUM 125 MG CAP.SPRINK PO SCH ×2 (08:44→20:40)
[2023-01-14] MEDS: DOCUSATE SODIUM 250 MG CAPSULE PO PRN (08:44)
[2023-01-14] MEDS: METHOCARBAMOL (500MG) 500 MG TABLET PO PRN (08:44)
[2023-01-14] MEDS: CALCIUM CARB 600MG /VIT D 1 EACH TABLET PO SCH ×3 (08:44→17:19)
[2023-01-14] MEDS: PRIMIDONE 50 MG TABLET PO SCH ×3 (08:44→20:12)
[2023-01-14] MEDS: SUCRALFATE 1 G TABLET PO SCH (08:44)
[2023-01-14] MEDS: PANTOPRAZOLE 40 MG TABLET.DR PO SCH (08:45)
[2023-01-14] MEDS: SERTRALINE HCL 25 MG TABLET PO SCH (12:39)
[2023-01-14 16:00] VITALS: BP 123/59
--- NOTE | 2023-01-14 19:30 | NUR ---
RN NOTES: PATIENT WALKING IN THE HALLWAY,A/O X2 BREATHING EVEN AND UNLABORED WITH NO S/S OF DISTRESS. PATIENT IS ANXIOUS,EASILY AGITATED , GUARDED, PARNOID, HYPERVERBAL , NEEDY PATIENT IS MEDICATION COMPLIANT. ENCOURAGED PATIENT TO VERBALIZED ANY FEELING OR CONCERN . DENIES SI/HI AND AUDITORY/VISUAL HALLUCINATIONS AT THIS TIME. WILL CONTINUE TO MONITOR Q 15 MINUTES FOR SAFETY AND BEHAVIOR.
[2023-01-14] MEDS: SIMVASTATIN 20 MG TABLET PO SCH (22:05)
--- NOTE | 2023-01-15 05:44 | NUR ---
RN NOTES: PATIENT RESTING IN ROOM AND 7 HOURS OF SLEEP NO S/SX OF ACUTE DISTRESS NOTED. PATIENT EASILY AGITATED,PARANOID,DISORGNIZED, MED COMPLIANT , COOPERATIVE TO CARE.ALL NEEDS ATTENDED AND ANTICIPATED, NEEDS FREQUENTLY REDIRECTIONS, DENIES SI/HI/AVH AT THIS TIME. SAFETY PRECAUTIONS MAINTAINED. ENCOURAGED TO VERBALIZED ANY FEELING OR CONCERN ,WILL CONTINUE TO MONITOR Q15MIN ROUNDS FOR SAFETY AND BEHAVIOR.
[2023-01-15 08:00] VITALS: BP 100/61
[2023-01-15] MEDS: FLUTICASONE/VILANTEROL 1 EACH BLST.W.DEV IH SCH (09:28)
[2023-01-15] MEDS: CARBAMIDE PEROXIDE OTIC 15 ML BOTTLE EACH EAR SCH (09:28)
[2023-01-15] MEDS: DOCUSATE SODIUM 250 MG CAPSULE PO PRN (09:31)
[2023-01-15] MEDS: CALCIUM CARB 600MG /VIT D 1 EACH TABLET PO SCH ×3 (09:31→17:14)
[2023-01-15] MEDS: PANTOPRAZOLE 40 MG TABLET.DR PO SCH (09:31)
[2023-01-15] MEDS: METHOCARBAMOL (500MG) 500 MG TABLET PO PRN (09:32)
[2023-01-15] MEDS: DIVALPROEX SODIUM 125 MG CAP.SPRINK PO SCH ×2 (09:32→20:42)
[2023-01-15] MEDS: SUCRALFATE 1 G TABLET PO SCH (09:32)
[2023-01-15] MEDS: PRIMIDONE 50 MG TABLET PO SCH ×3 (09:33→20:28)
[2023-01-15] MEDS: SERTRALINE HCL 25 MG TABLET PO SCH (13:32)
[2023-01-15 16:00] VITALS: BP 105/62
--- NOTE | 2023-01-15 19:42 | NUR ---
RN NOTES: PATIENT RESTING HIS ROOM,A/O X2 BREATHING EVEN AND UNLABORED WITH NO S/S OF DISTRESS. PATIENT IS ANXIOUS,EASILY AGITATED , GUARDED, PARNOID , NEEDY PATIENT IS MEDICATION COMPLIANT. ENCOURAGED PATIENT TO VERBALIZED ANY FEELING OR CONCERN . DENIES SI/HI AND AUDITORY/VISUAL HALLUCINATIONS AT THIS TIME. WILL CONTINUE TO MONITOR Q 15 MINUTES FOR SAFETY AND BEHAVIOR.
[2023-01-15 20:12] VITALS: BP_SYST 101; BP_DIAS 56; BP_DIAS 63
[2023-01-15] MEDS: SIMVASTATIN 20 MG TABLET PO SCH (21:27)
[2023-01-16 08:00] VITALS: BP 143/79
[2023-01-16] MEDS: CARBAMIDE PEROXIDE OTIC 15 ML BOTTLE EACH EAR SCH (08:52)
[2023-01-16] MEDS: FLUTICASONE/VILANTEROL 1 EACH BLST.W.DEV IH SCH (08:52)
[2023-01-16] MEDS: CALCIUM CARB 600MG /VIT D 1 EACH TABLET PO SCH ×3 (08:56→16:54)
[2023-01-16] MEDS: PRIMIDONE 50 MG TABLET PO SCH ×3 (08:56→21:06)
[2023-01-16] MEDS: DIVALPROEX SODIUM 125 MG CAP.SPRINK PO SCH ×3 (08:56→21:06)
[2023-01-16] MEDS: DOCUSATE SODIUM 250 MG CAPSULE PO PRN (08:56)
[2023-01-16] MEDS: PANTOPRAZOLE 40 MG TABLET.DR PO SCH (08:56)
[2023-01-16] MEDS: SUCRALFATE 1 G TABLET PO SCH (08:57)
[2023-01-16] MEDS ORDERED: ALENDRONATE 70 MG TABLET PO SCH (10:00)
[2023-01-16] MEDS: SERTRALINE HCL 25 MG TABLET PO SCH (13:38)
[2023-01-16 16:00] VITALS: BP 100/61
[2023-01-16 20:22] VITALS: BP 100/61
[2023-01-16] MEDS: SIMVASTATIN 20 MG TABLET PO SCH (21:06)
--- NOTE | 2023-01-17 06:26 | NUR ---
kidney puller notes pt remains sleeping but arouse easily. breathing even and non-labored not in any acute distress noted, he's calmed down at this time. All due meds given and all needs met. Kept him warm and comfortable at all times. Bed in low and lock i n position with side rails up . will continue monitoring.
[2023-01-17] MEDS: PRIMIDONE 50 MG TABLET PO SCH ×3 (07:40→20:14)
[2023-01-17] MEDS: PANTOPRAZOLE 40 MG TABLET.DR PO SCH (07:40)
[2023-01-17 08:00] VITALS: BP 121/61
[2023-01-17] MEDS: SUCRALFATE 1 G TABLET PO SCH (08:48)
[2023-01-17] MEDS: DIVALPROEX SODIUM 125 MG CAP.SPRINK PO SCH ×3 (08:48→20:14)
[2023-01-17] MEDS: CALCIUM CARB 600MG /VIT D 1 EACH TABLET PO SCH ×3 (08:49→17:15)
[2023-01-17] MEDS: CARBAMIDE PEROXIDE OTIC 15 ML BOTTLE EACH EAR SCH (08:50)
[2023-01-17] MEDS: FLUTICASONE/VILANTEROL 1 EACH BLST.W.DEV IH SCH (08:51)
[2023-01-17] MEDS: SERTRALINE HCL 25 MG TABLET PO SCH (12:37)
[2023-01-17 16:00] VITALS: BP 108/61
[2023-01-17 19:42] VITALS: BP 113/57
[2023-01-17] MEDS: SIMVASTATIN 20 MG TABLET PO SCH (21:28)
[2023-01-18] MEDS: PANTOPRAZOLE 40 MG TABLET.DR PO SCH (07:37)
[2023-01-18] MEDS: PRIMIDONE 50 MG TABLET PO SCH ×3 (07:37→20:45)
[2023-01-18 08:00] VITALS: BP 122/79
[2023-01-18] MEDS: CALCIUM CARB 600MG /VIT D 1 EACH TABLET PO SCH ×3 (08:41→16:15)
[2023-01-18] MEDS: DOCUSATE SODIUM 250 MG CAPSULE PO PRN (08:41)
[2023-01-18] MEDS: SUCRALFATE 1 G TABLET PO SCH (08:41)
[2023-01-18] MEDS: DIVALPROEX SODIUM 125 MG CAP.SPRINK PO SCH ×3 (08:42→21:23)
[2023-01-18] MEDS: METHOCARBAMOL (500MG) 500 MG TABLET PO PRN (08:42)
--- NOTE | 2023-01-18 09:00 | NUR ---
MED NOTE PATIENT REFUSED FLUITCASONE, STATED HE DIDNT NEED IT RIGHT NOW MAYBE LATER.
[2023-01-18] MEDS: CARBAMIDE PEROXIDE OTIC 15 ML BOTTLE EACH EAR SCH (09:03)
[2023-01-18] MEDS: FLUTICASONE/VILANTEROL 1 EACH BLST.W.DEV IH SCH ×2 (09:03→10:01)
--- NOTE | 2023-01-18 10:31 | NUR ---
Court Notification: Pt does not have any supportive contact to notify of court hearing.
--- NOTE | 2023-01-18 10:31 | NUR ---
Court Hearing: Patient's court hearing for 6930 was today and it was upheld for GD.
--- NOTE | 2023-01-18 12:23 | NUR ---
SNF Referral: SHYANN sent clinicals to [facility] to Kelley gaines ([phone]) for placement. SW sent H & P, progress notes, and medication list.
[2023-01-18] MEDS: SERTRALINE HCL 25 MG TABLET PO SCH (12:40)
[2023-01-18 16:00] VITALS: BP 103/58
--- NOTE | 2023-01-18 18:40 | NUR ---
MARKETING CONSULTANT NOTES PATIENT RESTING IN HIS ROOM, BREATHING EVEN AND UNLABORED WITH NO S/S OF DISTRESS. PATIENT IS ANXIOUS, GUARDED, PARANOID, MEDICATION COMPLIANT. ENCOURAGED PATIENT TO VERBALIZED ANY FEELING OR CONCERN . DENIES SI/HI AND AUDITORY/VISUAL HALLUCINATIONS AT THIS TIME. WILL ENDORSE TO TOURIST INFORMATION OFFICER NURSE
[2023-01-18 20:02] VITALS: BP 123/74
[2023-01-18] MEDS: SIMVASTATIN 20 MG TABLET PO SCH (21:24)
[2023-01-19 08:00] VITALS: BP 123/64
[2023-01-19] MEDS: PRIMIDONE 50 MG TABLET PO SCH ×3 (08:23→20:27)
[2023-01-19] MEDS: SUCRALFATE 1 G TABLET PO SCH ×2 (08:23→09:00)
[2023-01-19] MEDS: METHOCARBAMOL (500MG) 500 MG TABLET PO PRN (08:23)
[2023-01-19] MEDS: PANTOPRAZOLE 40 MG TABLET.DR PO SCH (08:23)
[2023-01-19] MEDS: DIVALPROEX SODIUM 125 MG CAP.SPRINK PO SCH ×3 (08:23→21:11)
[2023-01-19] MEDS: CALCIUM CARB 600MG /VIT D 1 EACH TABLET PO SCH ×3 (08:23→16:26)
--- NOTE | 2023-01-19 09:00 | NUR ---
SURVEY AND MAPPING TECHNICIAN NOTE PATIENT REFUSED CARAFATE/SUCRALFATE MEDICATION, BUT TOOK ALL OTHERS.
[2023-01-19] MEDS: SERTRALINE HCL 25 MG TABLET PO SCH (13:02)
[2023-01-19 16:00] VITALS: BP 112/65
[2023-01-19 20:51] VITALS: BP 105/63
[2023-01-19] MEDS: SIMVASTATIN 20 MG TABLET PO SCH (21:13)
--- NOTE | 2023-01-20 07:40 | NUR ---
RN NOTES PT STILL SLEEPING AT THIS TIME, EASY TO AROUSE. NO S/SX OF RESP.DISTRESS, PT ABLE TO MAKE HIS NEEDS KNOW, ABLE TO VERBALIZED NEEDS. SAFETY MEASURES OBSERVED. WILL CONTINUE TO MONITOR
[2023-01-20 08:00] VITALS: BP 96/50
[2023-01-20] MEDS: CALCIUM CARB 600MG /VIT D 1 EACH TABLET PO SCH ×3 (08:27→17:02)
[2023-01-20] MEDS: PRIMIDONE 50 MG TABLET PO SCH ×3 (08:27→20:39)
[2023-01-20] MEDS: DIVALPROEX SODIUM 125 MG CAP.SPRINK PO SCH ×3 (08:27→20:39)
[2023-01-20] MEDS: PANTOPRAZOLE 40 MG TABLET.DR PO SCH (08:27)
[2023-01-20] MEDS: FLUTICASONE/VILANTEROL 1 EACH BLST.W.DEV IH SCH (09:02)
--- NOTE | 2023-01-20 15:12 | NUR ---
SNF Contact: SW spoke with [facility] to Kelley gaines ([phone]) who stated they cannot accept pt due to behaviors.
--- NOTE | 2023-01-20 15:12 | NUR ---
SNF Referral: SHYANN sent clinicals to Jonelle from [facility] ([phone]) for placement. SW sent H & P, progress notes, and medication list.
[2023-01-20 16:00] VITALS: BP 101/61
--- NOTE | 2023-01-20 16:09 | NUR ---
SNF Contact: SW spoke with CJ from [facility] ([phone]) who stated that pt is accepted.
--- NOTE | 2023-01-20 18:18 | NUR ---
RN NOTES: PATIENT IN DINING AREA,A/O X2-3 BREATHING EVEN AND UNLABORED WITH NO S/S OF DISTRESS, ABLE TO MAKE NEEDS KNOWN. PATIENT IS EASILY GETS AGITATED,GUARDED,PARANOID. NO SIGNIFICANT CHANGES IN BAHAVIOR ALL THROUGHOUT THE SHIFT. PATIENT IS COMPLIANT WITH MEDICATIONS, ALL DUE MEDS GIVEN. KEPT PATIENT CLEAN AND COMFORTABLE. ENCOURAGED PATIENT TO VERBALIZED ANY FEELING OR CONCERN . DENIES SI/HI AND AUDITORY/VISUAL HALLUCINATIONS AT THIS TIME. WILL ENDORSED TO NIGHT NURSE FOR CONTINUITY OF CARE.
[2023-01-20 20:00] VITALS: BP 112/51
[2023-01-20] MEDS: SIMVASTATIN 20 MG TABLET PO SCH (21:13)
[2023-01-21 08:00] VITALS: BP 106/67
[2023-01-21] MEDS: DIVALPROEX SODIUM 125 MG CAP.SPRINK PO SCH ×4 (08:32→21:15)
[2023-01-21] MEDS: CALCIUM CARB 600MG /VIT D 1 EACH TABLET PO SCH ×3 (08:32→17:56)
[2023-01-21] MEDS: SUCRALFATE 1 G TABLET PO SCH (08:32)
[2023-01-21] MEDS: PANTOPRAZOLE 40 MG TABLET.DR PO SCH (08:32)
[2023-01-21] MEDS: PRIMIDONE 50 MG TABLET PO SCH ×3 (08:32→20:36)
[2023-01-21] MEDS: FLUTICASONE/VILANTEROL 1 EACH BLST.W.DEV IH SCH (08:33)
[2023-01-21 16:00] VITALS: BP 106/65
[2023-01-21 20:00] VITALS: BP 104/58
--- NOTE | 2023-01-21 20:37 | NUR ---
GPS RN OPENING NOTES: PATIENT IN DINING AREA,A/O X2-3 BREATHING EVEN AND UNLABORED WITH NO S/S OF DISTRESS, ABLE TO MAKE NEEDS KNOWN. PATIENT IS EASILY GETS AGITATED,GUARDED,PARANOID. NO SIGNIFICANT CHANGES IN BEHAVIOR NOTED AT THIS TIME. PATIENT IS COMPLIANT WITH MEDICATIONS, ALL DUE MEDS GIVEN. KEPT PATIENT CLEAN AND COMFORTABLE. ENCOURAGED PATIENT TO VERBALIZED ANY FEELING OR CONCERN . DENIES SI/HI AND AUDITORY/VISUAL HALLUCINATIONS AT THIS TIME. KEPT BED ON LOWERED LOCKED POSITION, KEPT SIDE RAILS UP X 2 ALL THE TIME.WILL ENDORSED TO NIGHT NURSE FOR CONTINUITY OF CARE.
[2023-01-21] MEDS: SIMVASTATIN 20 MG TABLET PO SCH (21:15)
[2023-01-22 08:00] VITALS: BP 113/66
[2023-01-22] MEDS: FLUTICASONE/VILANTEROL 1 EACH BLST.W.DEV IH SCH (08:22)
[2023-01-22] MEDS: SUCRALFATE 1 G TABLET PO SCH (08:24)
[2023-01-22] MEDS: DOCUSATE SODIUM 250 MG CAPSULE PO PRN (08:24)
[2023-01-22] MEDS: PANTOPRAZOLE 40 MG TABLET.DR PO SCH (08:25)
[2023-01-22] MEDS: DIVALPROEX SODIUM 125 MG CAP.SPRINK PO SCH ×4 (08:25→20:12)
[2023-01-22] MEDS: PRIMIDONE 50 MG TABLET PO SCH ×3 (08:25→20:12)
[2023-01-22] MEDS: CALCIUM CARB 600MG /VIT D 1 EACH TABLET PO SCH ×3 (08:25→17:07)
[2023-01-22 16:00] VITALS: BP 123/60
--- NOTE | 2023-01-22 19:00 | NUR ---
GPS RN OPENING NOTE RECEIVED PT AWAKE AND IN THE BED. PT IS A/O X 3, ABLE TO MAKE NEEDS KNOWN. PT GETS IRRITATED EASILY. PATIENT IS SHOWING NO S/S OF DISTRESS AT THIS TIME. PT HAS NO S/S OR COMPLAINTS OF PAIN @ THIS TIME. PT IS IN RA TOLERATING WELL, BREATHING EVEN AND UNLABORED @ THIS TIME. PATIENT HAS NO NEED @ THIS TIME. PATIENT BED SIDE RAILS UP X 2 FOR SAFETY. BED LOCKED AND LOW. WILL CONTINUE TO MONITOR Q15 WITH THE HELP OF STAFF TO MAINTAIN SAFETY.
[2023-01-22 20:00] VITALS: BP 105/59
[2023-01-22] MEDS: SIMVASTATIN 20 MG TABLET PO SCH (21:28)
[2023-01-23 08:00] VITALS: BP 108/68
[2023-01-23] MEDS: FLUTICASONE/VILANTEROL 1 EACH BLST.W.DEV IH SCH (08:06)
[2023-01-23] MEDS: DOCUSATE SODIUM 250 MG CAPSULE PO PRN (08:08)
[2023-01-23] MEDS: CALCIUM CARB 600MG /VIT D 1 EACH TABLET PO SCH ×3 (08:08→16:18)
[2023-01-23] MEDS: PRIMIDONE 50 MG TABLET PO SCH ×3 (08:08→20:49)
[2023-01-23] MEDS: DIVALPROEX SODIUM 125 MG CAP.SPRINK PO SCH ×4 (08:08→21:10)
[2023-01-23] MEDS: PANTOPRAZOLE 40 MG TABLET.DR PO SCH (08:08)
[2023-01-23] MEDS: SUCRALFATE 1 G TABLET PO SCH (08:08)
[2023-01-23 16:00] VITALS: BP 107/66
[2023-01-23 20:23] VITALS: BP 149/66
[2023-01-23] MEDS: SIMVASTATIN 20 MG TABLET PO SCH (21:10)
[2023-01-24 08:00] VITALS: BP 118/53
[2023-01-24] MEDS: PRIMIDONE 50 MG TABLET PO SCH ×3 (08:18→20:24)
[2023-01-24] MEDS: PANTOPRAZOLE 40 MG TABLET.DR PO SCH (08:19)
[2023-01-24] MEDS: DIVALPROEX SODIUM 125 MG CAP.SPRINK PO SCH ×3 (08:19→16:19)
[2023-01-24] MEDS: FLUTICASONE/VILANTEROL 1 EACH BLST.W.DEV IH SCH (09:00)
[2023-01-24] MEDS: SUCRALFATE 1 G TABLET PO SCH (09:09)
[2023-01-24] MEDS: DOCUSATE SODIUM 250 MG CAPSULE PO PRN (09:09)
[2023-01-24] MEDS: CALCIUM CARB 600MG /VIT D 1 EACH TABLET PO SCH ×3 (09:09→16:19)
--- NOTE | 2023-01-24 10:52 | NUR ---
Facility Contact: SHYANN contacted the healthcare educator Arsalan ([phone]) and notified that pt will be discharged to [facility] tomorrow 01/25. SW left a detailed voicemail.
[2023-01-24 16:00] VITALS: BP 113/61
[2023-01-24 19:53] VITALS: BP 116/56
[2023-01-24] MEDS ORDERED: DIVALPROEX SODIUM 500 MG TABLET.DR PO SCH (21:00)
[2023-01-24] MEDS: SIMVASTATIN 20 MG TABLET PO SCH (21:05)
[2023-01-25 07:03] LABS: BASOPHILS % (AUTO) 0.8 % (0.0-2.0); EOSINOPHILS % (AUTO) 3.7 % (0.0-6.0); HEMATOCRIT 42 % (39-51); HEMOGLOBIN 13.8 g/dL (13.5-17.5); LYMPHOCYTES # (AUTO) 1.1 K/uL (0.8-4.8); LYMPHOCYTES % (AUTO) 24.8 % (20.0-44.0); MEAN CORPUSCULAR HGB CONC 33 g/dl (31.0-36.0); MEAN CORPUSCULAR VOLUME 91 fL (80-96); MONOCYTES # (AUTO) 0.6 K/uL (0.1-1.30); MONOCYTES % (AUTO) 14.2 % (2.0-12.0); NEUTROPHILS # (AUTO) 2.4 K/uL (1.8-8.9); NEUTROPHILS % (AUTO) 56.5 % (43.0-81.0); PLATELET COUNT (AUTO) 130 K/uL (150-450); WHITE BLOOD COUNT (AUTO) 4.3 K/uL (4.3-11.0)
[2023-01-25 07:48] LABS: ALBUMIN 3.2 g/dL (3.4-5.0); BILIRUBIN,TOTAL 0.2 mg/dL (0.2-1.0); CALCIUM, SERUM 8.7 mg/dL (8.5-10.1); CREATININE 1.1 mg/dL (0.6-1.3); POTASSIUM 4.2 mmol/L (3.5-5.1); TOTAL PROTEIN, SERUM 5.8 g/dL (6.4-8.2)
[2023-01-25 08:00] VITALS: BP 113/65
--- NOTE | 2023-01-25 08:08 | NUR ---
SW Discharge Note: Patient will be discharged to group home facility to [facility] [address] [place] [address]; . Please arrange Ambulance transportation at 1PM. Commercial Estimator spoke with RY, Practical Nurse at [facility]; ([phone]), who stated patient will be accepted at facility today. Patient is alert and oriented x2. Patient denies any suicidal or homicidal ideations. Patient is aware and agreeable with discharge plans. Patient does not want anyone to be contacted of de. Patient will continue to follow-up with (psychiatrist) Dr. Solitario [address], [place] [address]; ([phone]) and Expressive Music Therapist Dr. Slater at [address], [place] [address]; ([phone]). Pt presents with euthymic mood and congruent affect.
[2023-01-25] MEDS: SUCRALFATE 1 G TABLET PO SCH (08:20)
[2023-01-25] MEDS: PANTOPRAZOLE 40 MG TABLET.DR PO SCH (08:20)
[2023-01-25] MEDS: CALCIUM CARB 600MG /VIT D 1 EACH TABLET PO SCH ×2 (08:20→12:55)
[2023-01-25] MEDS: DIVALPROEX SODIUM 125 MG CAP.SPRINK PO SCH ×2 (08:20→12:55)
[2023-01-25] MEDS: PRIMIDONE 50 MG TABLET PO SCH ×2 (08:20→12:57)
[2023-01-25] MEDS: FLUTICASONE/VILANTEROL 1 EACH BLST.W.DEV IH SCH (08:22)
--- NOTE | 2023-01-25 09:45 | NUR ---
RN- NOTES ORDER RECEIVED FROM PSYCHIATRIST DR. CORMIER TO DISCONTINUE HOLD AND DISCHARGE PATIENT TO [facility], LOCATED AT [address] [place] [id number].
--- NOTE | 2023-01-25 10:21 | NUR ---
Facility Contact: SHYANN contacted Arsalan pt's board and care ([phone]) to notify of pt's belongings being sent to the new facility [facility].
--- NOTE | 2023-01-25 13:35 | NUR ---
RN- DISCHARGE NOTES PATIENT DISCHARGED TO [facility] IN STABLE CONDITION. COMPLIANT WITH MEDICATIONS AND COOPERATIVE WITH TREATMENT PLANS. PATIENT DENIES SUICIDAL/HOMICIDAL IDEATION AND AUDITORY/VISUAL HALLUCINATION. BEHAVIOR IMPROVED, PSYCHIATRIC TREATMENT PLANS MET, AND MEDICAL TREATMENT PLANS DEFERRED FOR CONTINUAL MONITORING. EDUCATED PATIENT ABOUT AFTER CARE PLAN AND COPY PROVIDED. RETURNED ALL PERSONAL BELONGINGS TO PATIENT. MEDICATIONS RECONCILED WITH PSYCHIATRIST DR. CORMIER AND MED MINE INSPECTOR FEDERAL DR. CHENG. REPORT GIVEN TO FABIANO PHILLIPS AT [facility] FOR CONTINUITY OF CARE. PATIENT SIGNED DISCHARGE PAPERWORK EXCEPT FOR FIREARMS PROHIBITION AND RIGHT TO HEARING FORM. WOUND PICTURES TAKEN AND DOCUMENTED IN CHART. PATIENT IS CALM, COOPERATIVE, AND WITHOUT DISTRESS. PATIENT LEFT THE UNIT AT 1335 VIA AMBULANCE ON A GURNEY.
== END 2023-01-25 13:35 | DRG 885 ==
LOC: ER 16:34 → GPS 20:18
PROVIDERS: ADMIT Psychiatry & Neurology Psychosomatic Medicine; ATTEND Internal Medicine
DX: F31.9 Bipolar disorder, unspecified (principal); F03.92 Unspecified dementia, unspecified severity, with psychotic disturbance; F03.93 Unspecified dementia, unspecified severity, with mood disturbance; F03.94 Unspecified dementia, unspecified severity, with anxiety; F29 Unspecified psychosis not due to a substance or known physiological condition; I10 Essential (primary) hypertension; F43.10 Post-traumatic stress disorder, unspecified; F19.90 Other psychoactive substance use, unspecified, uncomplicated; Z85.46 Personal history of malignant neoplasm of prostate; R27.0 Ataxia, unspecified; Z79.51 Long term (current) use of inhaled steroids; Z79.83 Long term (current) use of bisphosphonates; Z79.899 Other long term (current) drug therapy; M81.0 Age-related osteoporosis without current pathological fracture; K21.9 Gastro-esophageal reflux disease without esophagitis; G40.909 Epilepsy, unspecified, not intractable, without status epilepticus; J45.909 Unspecified asthma, uncomplicated; Z63.8 Other specified problems related to primary support group; M19.90 Unspecified osteoarthritis, unspecified site; Z87.11 Personal history of peptic ulcer disease; D50.9 Iron deficiency anemia, unspecified; F39 Unspecified mood [affective] disorder; Z73.6 Limitation of activities due to disability
CPT/HCPCS: 36415; 80048-TC; 80053-TC; 80061-TC; 80076-TC; 80164-TC; 82962-TC; 85025-TC; 87081-TC; C9803; G0480